=== PATIENT | male | born 1950 | race Caucasian/White ===

== ENCOUNTER 2016-08-24 09:42 | Emergency (ER) | payer SELFPAY ==
[~2016-08-24] VITALS: Ht 177.8 cm; Wt 79.5 kg
[2016-08-24] MEDS ORDERED: SODIUM CHLORIDE 0.9% 1,000 ML IV ONE (09:53)
[2016-08-24] MEDS ORDERED: NALOXONE 0.4 MG/ML, 1ML IVPush PRN (10:00)
[2016-08-24] MEDS ORDERED: SODIUM CHLORIDE 0.9% 1,000ML IVBOLUS ONE (10:00)
[2016-08-24 10:24] LABS: ASPARTATE AMINO TRANSFERASE 92 U/L (15-37); BLOOD UREA NITROGEN 9 mg/dL (7-18)
[2016-08-24 10:26] LABS: ACETAMINOPHEN 2 mcg/mL (10-30)
[2016-08-24] MEDS ORDERED: NALOXONE 0.4 MG/ML, 1ML ONE (10:43)
[2016-08-24 11:09] LABS: DAU SCREEN DISCLAIMER
[2016-08-24 15:20] VITALS: BP 161/69
== END 2016-08-24 15:44 | disposition home or self-care (01) ==
LOC: ED 09:49
DX: R53.83 Other fatigue (principal); R41.82 Altered mental status, unspecified; J32.2 Chronic ethmoidal sinusitis; J32.0 Chronic maxillary sinusitis; F10.120 Alcohol abuse with intoxication, uncomplicated
CPT/HCPCS: 36415; 70450; 71010; 80053; 80307; 80329; 81003; 82140; 85025; 93005; 96361; 96374; 99285; J2310; J7030; G0480